=== PATIENT | male | born 1990 | race African-American/Black ===

== ENCOUNTER 2016-04-08 15:50 | Emergency (ER) | payer OTHER ==
[2016-04-08] MEDS ORDERED: MORPHINE 4 MG/ML SYR ONE (16:05)
[2016-04-08] MEDS ORDERED: ORPHENADRINE 60 MG/2 ML AMP ONE (17:03)
== END 2016-04-08 17:51 | disposition home or self-care (01) ==
LOC: ER 15:50
DX: R10.31 Right lower quadrant pain (principal); F17.210 Nicotine dependence, cigarettes, uncomplicated
CPT/HCPCS: 36415; 74176; 80053; 81001; 85025; 96374; 96375; 99285; J2270